=== PATIENT | male | born 1970 | race African-American/Black ===

== ENCOUNTER 2020-08-08 11:58 | Emergency (ER) | payer OTHER ==
[~2020-08-08] VITALS: Ht 185.4 cm; Wt 11.7 kg
--- NOTE | 2020-08-08 12:38 | REP ---
INDICATION: DYSPNEA/COUGH. COMPARISON: None. TECHNIQUE: SINGLE PORTABLE AP VIEW OF THE CHEST WAS PERFORMED. FINDINGS: THERE IS NO ACUTE INFILTRATE OR PULMONARY EDEMA. LUNGS ARE CLEAR. HEART IS NOT SIGNIFICANTLY ENLARGED. MEDIASTINAL SILHOUETTE IS UNREMARKABLE. THE VISUALIZED OSSEOUS STRUCTURES ARE INTACT. IMPRESSION: NO ACUTE PULMONARY DISEASE. <Electronically signed by Jefry Gaviria > 08/08/20 [id number]
[2020-08-08 13:14] LABS: BASO % 0.7 % (0.0-1.0); EOS # 0.1 10^3/uL (0.0-0.5); EOS % 1.4 % (0.0-3.0); HEMOGLOBIN 15.5 g/dl (13.5-17.5); LYMPH # 1.3 10^3/uL (1.5-5.0); LYMPH % 29.1 % (24.0-44.0); MEAN CORPUSCULAR HEMOGLOBIN 27.6 pg (27.0-33.0); MEAN CORPUSCULAR HGB CONC 32.3 g/dl (32.0-36.5); MEAN CORPUSCULAR VOLUME 85.6 fl (80.0-96.0); MONO # 0.3 10^3/uL (0.0-0.8); MONO % 7.7 % (2.0-8.0); NEUTROPHILS # 2.6 10^3/uL (1.5-8.5); NEUTROPHILS % 60.9 % (36.0-66.0); PLATELET COUNT, AUTOMATED 204 10^3/uL (150-450); RED BLOOD COUNT 5.61 10^6/uL (4.30-6.10); WHITE BLOOD COUNT 4.3 10^3/uL (4.0-10.0)
--- OUTSIDE RECORDS SUMMARY | 2020-08-08 13:19 | CCD ---
Author Author [facility] Address Unknown Phone Unavailable Support Name Relationship Address Phone RE Next Of Kin Unknown Unavailable AEROTEK Next Of Kin [id number] [place] [address] ANUSHA KELLEY Next Of Kin [address] [place] [address] ANUSHA KELLEY ECON [address] [place] [address] [phone] Re-disclosure Warning The records that you are about to access may contain information from federally-assisted alcohol or drug abuse programs. If such information is present, then the following federally mandated warning applies: This information has been disclosed to you from records protected by federal confidentiality rules (42 CFR part 2). The federal rules prohibit you from making any further disclosure of this information unless further disclosure is expressly permitted by the written consent of the person to whom it pertains or as otherwise permitted by 42 CFR part 2. A general authorization for the release of medical or other information is NOT sufficient for this purpose. The Federal rules restrict any use of the information to criminally investigate or prosecute any alcohol or drug abuse patient.The records that you are about to access may contain highly sensitive health information, the redisclosure of which is protected by Article 27-F of the [facility] Public Health law. If you continue you may have access to information: Regarding HIV / AIDS; Provided by facilities licensed or operated by the [facility] Office of Mental Health; or Provided by the [facility] Office for People With Developmental Disabilities. If such information is present, then the following [facility] mandated warning applies: This information has been disclosed to you from confidential records which are protected by state law. State law prohibits you from making any further disclosure of this information without the specific written consent of the person to whom it pertains, or as otherwise permitted by law. Any unauthorized further disclosure in violation of state law may result in a fine or longterm sentence or both. A general authorization for the release of medical or other information is NOT sufficient authorization for further disc losure. Encounters Encounter Providers [facility] Date Indications [facility] [address] [place] [address] [facility]/16/[facility] 12:00:00 AM EST eCW1 ([facility]) Insurance Providers Payer name Policy type / Coverage type Policy ID Covered alliance party ID Covered alliance party's relationship to doan Policy Doan Plan Information [employer] [id number] SP [id number] SELF PAY ONLY [id number] SP [id number] [employer] [employer]PHYSICIAN [id number] 18 [id number] [facility] CLAIMS YANY-CLINIC [id number] 18 [id number] Surgeries/Procedures Procedure Description Date Indications Data Source(s) PHYSICAL EXAM-WORK 07/16/2019 12:00:00 AM EST eCW1 ([facility]) Vital Signs ID Date Data Source UNK Name Value Range Interpretation Code Description Data Source(s) Diastolic blood pressure 80 mm[Hg] 80 mm[Hg] eCW1 ([facility]) Systolic blood pressure 144 mm[Hg] 144 mm[Hg] e CW1 ([facility]) Body temperature 98.2 [degF] 98.2 [degF] eCW1 ( [facility]) Respiratory rate 18 /min 18 /min eCW1 ([facility]) Heart rate 77 /min 77 /min eCW1 ([facility]) Body mass index (BMI) [Ratio] 31.84 kg/m2 31.84 kg/m2 W1 ([facility]) Body height 74 [in_us] 74 [in_us] eCW1 ([facility]) Body weight Measured 248 [lb_av] 248 [lb_av] eC W1 ([facility])
[2020-08-08 13:23] LABS: INR 0.98; PROTHROMBIN TIME 13.2 SECONDS (12.5-14.3)
[2020-08-08 13:49] LABS: ALBUMIN 4.8 GM/DL (3.2-5.2); ALT/SGPT 105 U/L (12-78); BILIRUBIN,DIRECT 0.2 MG/DL (0.0-0.2); BILIRUBIN,TOTAL 0.5 MG/DL (0.2-1.0); BLOOD UREA NITROGEN 16 MG/DL (7-18); CALCIUM LEVEL 9.1 MG/DL (8.5-10.1); CARBON DIOXIDE LEVEL 25 MEQ/L (21-32); CHLORIDE LEVEL 99 MEQ/L (98-107); CK-MB VALUE MASS 2.2 NG/ML (<3.6); CPK CREATINE PHOSPHOKINASE 678 U/L (39-308); CREATININE FOR GFR 1.15 MG/DL (0.70-1.30); GLOMERULAR FILTRATION RATE > 60.0 (>56); GLUCOSE, FASTING 92 MG/DL (70-100); MB/CK RELATIVE INDEX 0.32 (< OR =4); POTASSIUM SERUM 3.6 MEQ/L (3.5-5.1); SODIUM LEVEL 136 MEQ/L (136-145); THYROXINE (T4) 5.8 UG/DL (4.5-12.0); TOTAL PROTEIN 8.6 GM/DL (6.4-8.2); TROPONIN I < 0.02 NG/ML (< 0.10)
[2020-08-08] MEDS ORDERED: ISOVUE-370 76% 100ML VIAL As Ordered ONE (14:15)
[2020-08-08] MEDS ORDERED: NS 1,000 ML IV ONE ×2 (14:45→16:00)
--- NOTE | 2020-08-08 15:19 | REP ---
INDICATION: SOB; r/o PE. COMPARISON: Portable chest today TECHNIQUE: CT angiogram chest performed following the intravenous administration of 75 cc of Isovue 370. Sagittal and coronal reconstruction images are performed. FINDINGS: Lungs: Clear, no infiltrate or nodule. Mediastinum: No adenopathy. Pulmonary arteries: No evidence of pulmonary embolism. Esthela: No adenopathy. Axilla: No adenopathy. Pleura: No effusion. Heart: Not enlarged. Thoracic aorta: No aneurysm or dissection. Upper abdominal structures: Unremarkable. No hiatal hernia. Visualized osseous structures: Unremarkable. IMPRESSION: No CT evidence of pulmonary embolism.No infiltrate seen. <Electronically signed by Aris Nguyen > 08/08/20 [id number]
--- NOTE | 2020-08-08 15:59 | ECGEPIP ---
[facility] [place] - ED Test Date: 2020-08-08 Pat Name: MIREILLE KELLEY Department: Room: - Gender: Male [employer]: odell : 1970 Requested By: Terrell Fitzgerald Order Number: [id number] Reading MD: Geo Bryant Measurements Intervals [place] Rate: 75 P: 63 VT: 136 QRS: 45 QRSD: 106 T: 5 QT: 392 QTc: 437 Interpretive Statements Normal sinus rhythm Nonspecific ST abnormality Comparison tracing not on file Baseline artifact Electronically Signed on 08-08-2020 15:59:05 EST by Geo Bryant
[2020-08-08] MEDS ORDERED: amLODIPine 5 MG TAB PO ONE (16:45)
[2020-08-08 17:04] VITALS: BP 168/98
[2020-08-08] MEDS ORDERED: NORV5TAB PO (19:21)
[2020-08-08 19:30] VITALS: BP 162/97
== END 2020-08-08 19:57 | disposition home or self-care (01) ==
LOC: M ED 11:58
DX: R07.89 Other chest pain (principal); I10 Essential (primary) hypertension
CPT/HCPCS: 71045; 71275; 80048; 80076; 82550; 82553; 83605; 84436; 84443; 84484; 85025; 85610; 87040; 87798; 87804; 93005; 93041; 94760; 96360; 99285; Q9967